=== PATIENT | male | born 1980 | race Caucasian/White ===

== ENCOUNTER → 2018-03-05 | Outpatient (CLI) | payer OTHER ==
--- NOTE | 2018-03-05 13:58 | REP ---
Lumbar spine series: Five views. History: Injury in a fall. Findings: Lumbar vertebral body heights are preserved. Pedicles and posterior elements are intact. Disc spaces are maintained. No fracture or collapse is seen. Psoas margins are symmetric. Sacrum and SI joints are unremarkable. Impression: Negative lumbar spine radiographs. Electronically Signed by Bruce Wright MD 03/05/2018 01:48 P
--- NOTE | 2018-03-05 13:58 | REP ---
Thoracic spine series: Two views. History: Injury in a fall. Findings: Thoracic vertebral body heights are preserved. Alignment is normal. Pedicles and posterior elements are intact. No fracture or collapse seen. Impression: Negative thoracic spine radiographs. Electronically Signed by Bruce Wright MD 03/05/2018 01:50 P
== END ==
LOC: M LRY 13:13
PROVIDERS: ATTEND Physician Assistant
DX: M54.9 Dorsalgia, unspecified (principal); W00.9XXA Unspecified fall due to ice and snow, initial encounter; Y92.89 Other specified places as the place of occurrence of the external cause; Y93.89 Activity, other specified; Y99.8 Other external cause status